=== PATIENT | male | born 1945 | race Caucasian/White ===

== ENCOUNTER → 2017-06-07 | Outpatient (CLI) | payer OTHER ==
--- NOTE | 2017-06-07 09:35 | DIAGNOSTIC IMAGING REPORT ---
CT SCAN OF THE CHEST WITHOUT IV CONTRAST CLINICAL HISTORY: Follow-up pulmonary nodule. COMPARISON STUDY: Chest CT scans dated 09/24/2016 and 08/08/2016. TECHNIQUE: CT scan of the thorax was performed from the thoracic inlet to the upper abdomen. Images are reviewed in the axial, sagittal, and coronal planes. IV contrast was not administered for this examination. A dose lowering technique was utilized adhering to the principles of ALARA. CT DOSE: 253.19 mGy.cm FINDINGS: Thyroid: Imaged portions of the thyroid gland are normal in size and attenuation. Thoracic aorta: There is advanced atherosclerotic calcification of the thoracic aorta, which is normal in caliber and demonstrates standard 3-vessel arch anatomy. Heart: The heart is normal in size and without pericardial effusion. The coronary arteries are densely calcified. Lungs and pleural spaces: Advanced emphysematous change is identified. Minimal layering secretions are seen in the trachea. There is patchy airspace consolidation at the right lung base. A 1.5 cm nodular density seen in the right lung base on image #262. A trace right pleural effusion is identified. Fluid/debris is seen within the right lower lobe airways. Atelectasis/consolidation is seen in the posterior left lower lobe on image #107, new from previous. There is a 4 mm left apical nodule seen on image #32 and a 3 mm left upper lobe nodule seen image #52. These were not seen on prior studies. Mediastinum: There is no mediastinal lymphadenopathy. Starla: Normal assessed without IV contrast. Axillae: There is no axillary lymphadenopathy. Upper abdomen: There is a tiny hiatal hernia. Partially visualized upper abdominal viscera is otherwise within normal limits. Skeletal structures: The skeletal structures are osteopenic. No lytic or blastic bony lesions are seen. Arthritic change is noted in the shoulders. IMPRESSION: 1. Advanced emphysema. 2. There is patchy airspace consolidation at the right lung base with a trace right pleural effusion. Subpleural consolidative change is also seen in the left lower lobe. The appearance is typical for pneumonia/aspiration pneumonitis. Clinical correlation will be required. Follow-up chest CT in 3-4 months time is recommended to document resolution. 3. Fluid/debris is present in the right lower lobe airways. Minimal debris is seen in the trachea. Correlate clinically for evidence of aspiration. 4. There is a 1.5 cm nodular density at the right lung base as well as 2 new subcentimeter nodules at the left apex. These are likely on an infectious/inflammatory basis and should also be reassessed at follow-up. Electronically signed by: Sonny Escalante M.D. 06/07/2017 9:34 AM Dictated Date/Time: 06/07/2017 9:21 AM
== END | disposition home or self-care (01) ==
LOC: C.CTS 09:07
PROVIDERS: ATTEND Internal Medicine Critical Care Medicine
DX: R91.1 Solitary pulmonary nodule (principal); J43.9 Emphysema, unspecified; R91.8 Other nonspecific abnormal finding of lung field

== ENCOUNTER → 2017-07-12 | Outpatient (CLI) | payer OTHER ==
[2017-07-12 10:27] LABS: BASO % 0.2 %; BASO ABS # 0.02 K/uL (0-0.2); EOS % 0.8 %; EOS ABS # 0.08 K/uL (0-0.5); HEMATOCRIT 46.9 % (42-52); HEMOGLOBIN 15.5 g/dL (14.0-18.0); IG# 0.04 K/uL (0.00-0.02); LYMPH % 6.3 %; LYMPH ABS # 0.62 K/uL (1.2-3.4); MEAN CELL VOLUME 94.4 fL (80-100); MEAN CORPUSCULAR HEMOGLOBIN 31.2 pg (25-34); MEAN PLATELET VOLUME 9.8 fL (7.4-10.4); MONO % 6.2 %; MONO ABS # 0.61 K/uL (0.11-0.59); NEUT % 86.1 %; NEUT ABS # 8.41 K/uL (1.4-6.5); PLATELET COUNT 184 K/uL (130-400); RED CELL DISTRIBUTION WIDTH CV 15.2 % (11.5-14.5); RED CELL DISTRIBUTION WIDTH SD 52.2 fL (36.4-46.3); WHITE BLOOD COUNT 9.78 K/uL (4.8-10.8)
[2017-07-12 10:36] LABS: PTT PATIENT 22.8 SECONDS (21.0-31.0)
[2017-07-12 10:58] LABS: ALBUMIN 3.5 gm/dl (3.4-5.0); ALKALINE PHOSPHATASE 52 U/L (45-117); ALT/SGPT 32 U/L (12-78); AST/SGOT 21 U/L (15-37); BLOOD UREA NITROGEN 23 mg/dl (7-18); CALCIUM 8.8 mg/dl (8.5-10.1); CARBON DIOXIDE 29 mmol/L (21-32); CREATININE 1.11 mg/dl (0.60-1.40); GLUCOSE 104 mg/dl (70-99); POTASSIUM 3.9 mmol/L (3.5-5.1); SODIUM 143 mmol/L (136-145)
== END | disposition home or self-care (01) ==
LOC: C.LAB1850 09:41
PROVIDERS: ATTEND Internal Medicine Critical Care Medicine
DX: J44.9 Chronic obstructive pulmonary disease, unspecified (principal); R91.1 Solitary pulmonary nodule

== ENCOUNTER 2017-09-16 09:46 | Inpatient (IN) | payer OTHER ==
[~2017-09-16] VITALS: Ht 175.3 cm; Wt 66.3 kg
[~2017-09-16 09:46] MED LIST: ADVIN50/60 INH; DUTA0.5C PO; IPRA1AER2 INH; ROSU40TA PO; VENL150C56 PO; VNTHFA/IN INH
[2017-09-16] MEDS ORDERED: ALBUT/IPRATROP 3MG/0.5MG NEB 3 ML VIAL INH STA (10:13)
[2017-09-16] MEDS ORDERED: METHYLPREDNISOLONE 125 MG VIAL IV STA (10:13)
--- NOTE | 2017-09-16 10:36 | DIAGNOSTIC IMAGING REPORT ---
CHEST ONE VIEW PORTABLE CLINICAL HISTORY: Shortness of breath COMPARISON STUDY: 08/01/2017, CT scan dated 08/20/2017 FINDINGS: There is evidence for pulmonary emphysema. The heart is normal in size. There is no failure. There are no pleural effusions. There are persistent right lower lobe airspace opacities, statistically inflammatory/postinflammatory. Imaging follow-up to document resolution is again recommended IMPRESSION: 1. Persistent right lower lobe airspace opacities, statistically inflammatory/postinflammatory. As was stated in the prior CT report, follow-up to document resolution will be necessary. In addition, bronchoscopy should be considered to exclude a centrally obstructing lesion. 2. Emphysema Electronically signed by: Nick Mesa M.D. 09/16/2017 10:35 AM Dictated Date/Time: 09/16/2017 10:31 AM
[2017-09-16 10:42] LABS: BASO % 0.1 %; BASO ABS # 0.01 K/uL (0-0.2); EOS % 0.1 %; EOS ABS # 0.02 K/uL (0-0.5); HEMATOCRIT 45.6 % (42-52); HEMOGLOBIN 15.3 g/dL (14.0-18.0); IG# 0.05 K/uL (0.00-0.02); LYMPH % 4.6 %; LYMPH ABS # 0.67 K/uL (1.2-3.4); MEAN CELL VOLUME 94.2 fL (80-100); MEAN CORPUSCULAR HEMOGLOBIN 31.6 pg (25-34); MEAN CORPUSCULAR HGB CONC 33.6 g/dl (32-36); MEAN PLATELET VOLUME 10.9 fL (7.4-10.4); MONO % 7.9 %; MONO ABS # 1.14 K/uL (0.11-0.59); NEUT ABS # 12.56 K/uL (1.4-6.5); PLATELET COUNT 155 K/uL (130-400); RED CELL DISTRIBUTION WIDTH CV 15.4 % (11.5-14.5); RED CELL DISTRIBUTION WIDTH SD 53.5 fL (36.4-46.3); WHITE BLOOD COUNT 14.45 K/uL (4.8-10.8)
[2017-09-16] MEDS ORDERED: VNTHFA/IN INH (11:11)
[2017-09-16] MEDS ORDERED: IPRA1AER2 INH (11:11)
[2017-09-16] MEDS ORDERED: ADVIN25/60 INH (11:11)
[2017-09-16] MEDS ORDERED: OXYC-57 PO (11:11)
[2017-09-16] MEDS ORDERED: TAMS0.4C38 PO (11:11)
[2017-09-16] MEDS ORDERED: AVD5 PO (11:11)
[2017-09-16] MEDS ORDERED: SERT25TA PO (11:11)
[2017-09-16] MEDS ORDERED: VGR50 PO (11:11)
[2017-09-16] MEDS ORDERED: ROSU20TA PO (11:11)
[2017-09-16] MEDS ORDERED: VENL150C56 PO (11:11)
[2017-09-16] MEDS ORDERED: PRED10TA PO (11:11)
[2017-09-16 11:24] LABS: ALKALINE PHOSPHATASE 47 U/L (45-117); ALT/SGPT 27 U/L (12-78); AST/SGOT 13 U/L (15-37); BLOOD UREA NITROGEN 18 mg/dl (7-18); CALCIUM 9.3 mg/dl (8.5-10.1); CARBON DIOXIDE 25 mmol/L (21-32); CREATININE 1.06 mg/dl (0.60-1.40); GLUCOSE 133 mg/dl (70-99); LIPASE 78 U/L (73-393); POTASSIUM 3.7 mmol/L (3.5-5.1); SODIUM 139 mmol/L (136-145)
[2017-09-16] MEDS ORDERED: ACETAMINOPHEN 500 MG TAB ONE (11:26)
[2017-09-16] MEDS ORDERED: OPTIRAY 320 IV PRN (11:45)
[2017-09-16] MEDS ORDERED: OXYCODONE HCL IR 5 MG TAB (IMMEDIATE RELEASE) PO STA (12:52)
--- NOTE | 2017-09-16 12:54 | DIAGNOSTIC IMAGING REPORT ---
CT ANGIOGRAPHY OF THE CHEST, PULMONARY EMBOLUS PROTOCOL CLINICAL HISTORY: Shortness of breath and elevated d-dimer. Evaluate for pulmonary embolus. COMPARISON STUDY: Chest CT August 20, 2017 and chest radiograph performed earlier today. TECHNIQUE: Following IV administration of 93 mL of Optiray-320, helical axial images of the chest were obtained utilizing the pulmonary embolus protocol. Maximal intensity projections and sagittal and coronal reformats were viewed on an independent 3D workstation. IV contrast was administered without complication. A dose lowering technique was utilized adhering to the principles of ALARA. CT DOSE: 265.64 mGy.cm FINDINGS: No pulmonary emboli are identified. There is no evidence of thoracic aortic dissection. The size of the heart is normal. There is no pericardial effusion. Mild right hilar lymphadenopathy has developed since exam of August 20, 2017. Right infrahilar node measures 1 cm in short axis diameter. Severe emphysema is noted. Left lung is clear. Extensive right lower lobe consolidation has progressed since exam of August 20, 2017. Extensive secretions with multifocal narrowing within the right lower lobe segmental bronchi is noted with airway filling which may reflect mucoid impaction or mucus plugging. This has progressed since CT of August 20, 2017. No definite central obstructing mass is identified. Bony thorax and upper abdomen are unremarkable. No cavitation or pleural effusion is noted. A small hiatal hernia is noted. IMPRESSION: 1. No pulmonary emboli identified. 2. Progression of extensive right lower lobe airspace opacity since exam of August 20, 2017. The appearance favors pneumonia. Multifocal airway narrowing/occlusion with secretions throughout the segmental bronchi of the right lower lobe with mucoid impaction/mucus plugging. This has progressed since prior exam. No obstructing mass identified however a follow-up CT in 2 months to ensure resolution is recommended. If not already performed, bronchoscopy might be considered to exclude an occult lesion. 3. Mild right hilar lymphadenopathy which is likely reactive but should be assessed on subsequent CT. 4. Severe emphysema. Electronically signed by: King Edwards M.D. 09/16/2017 12:53 PM Dictated Date/Time: 09/16/2017 12:38 PM
[2017-09-16] MEDS ORDERED: PIPERACILLIN/TAZOBACTAM 4.5 GM/100ML D5W IV STA (13:18)
[2017-09-16] MEDS ORDERED: LEVAQUIN 750MG / 150ML D5W IV ONE (13:30)
[2017-09-16] MEDS ORDERED: POLYETHYLENE (MIRALAX) 17 GM PACK PO PRN (15:30)
--- NOTE | 2017-09-16 15:31 | History and Physical ---
History & Physical Date & Time of Service: Sep 16, 2017 at 14:17 Chief Complaint: Can't Catch Breath Primary Care Physician: Sin Rivas MD History of Present Illness Source: patient, family (two sons and daughter at bedside), hospital records 72 y/o male presents to the ED today with progressive shortness of breath for the past week. He has a history of COPD that has progressed, particularly over the past year and a half. He reports having home O2 for several months but has only worn consistently since recent hospitalization after bronchoscopy in July 2017. His baseline requirement is 2 liters. He is also on prednisone 10 mg daily and has been on this "for a long time." He has been smoking 1PPD since age 13 but reports current breathing issues have resulted in smoking only a few cigarettes per day, although still no interest in quitting long-term. His bronchoscopy in July 2017 was to be outpatient but patient desaturated post- procedure and was admitted. Culture grew pseudomonas for which he was treated with ciprofloxacin. He reports that he was doing better until a week ago. Since then he notes progressive dyspnea, particularly with exertion. Previously , he could do a flight of steps easily but he is now winded with 10 feet of walking. He has a chronic cough that is productive in the AMs of small amount of light brown sputum. No hemoptysis, fevers, chills, or night sweats. He has been fatigued. He props up with three pillows to sleep at night (baseline was two). Notes a decreased appetite but no N/V/D. +constipation but chronic issue. Last BM was four days ago. Takes Senna at home when needed, which works well. He has been using Combivent for rescue up to 6 times per day ( baseline 3-4x/day). He has not tried his nebulizer. Notes right > left lower back pain and some abdominal pain related to cough. Past Medical/Surgical History Medical Problems: (1) Actinic keratosis (2) COPD, severe (3) Depression (4) H/O carcinoma of bladder (5) HTN (hypertension) (6) oil heaterman systemic steroid user (7) Peripheral vascular disease (8) Pulmonary nodule (9) Right carotid bruit (10) SOB (shortness of breath) (11) Tobacco use disorder Surgical Problems: (1) H/O knee surgery (2) H/O shoulder surgery Family History Patient reports no known family medical history. Social History Smoking Status: Current Every Day Smoker Drug Use: none Marital Status: Housing status: lives alone Occupational Status: retired Immunizations History of Influenza Vaccine: Yes Influenza Vaccine Date: Nov 21, 2016 History of Tetanus Vaccine?: Yes Tetanus Immunization Date: Nov 23, 2016 History of Pneumococcal: Yes Pneumococcal Date: Dec 21, 2014 History of Hepatitis B Vaccine: Unknown Allergies Coded Allergies: Sulfa Antibiotics (Verified Allergy, Intermediate, HIVES, 09/16/17) Home Medications Scheduled Dutasteride (Avodart), 0.5 MG PO DAILY Fluticasone Prop/Salmeterol (Advair Diskus 250/50 60 Dose), 1 PUFF INH BID Ipratropium-Albuterol (Combivent Respimat), 1 PUFFS INH QID Prednisone Tab (Prednisone), 10 MG PO DAILY Rosuvastatin Calcium (Crestor), 20 MG PO DAILY Sertraline (Zoloft), 25 MG PO DAILY Tamsulosin Hcl (Flomax), 0.4 MG PO HS Venlafaxine Hcl (Effexor Extended Rel), 150 MG PO DAILY Scheduled PRN Albuterol Hfa (Ventolin Hfa), 2 PUFFS INH Q4 PRN for SOB/Wheezing Oxycodone/Acetaminophen 5MG/325MG (Percocet 5MG/325MG), 1 TABLET PO Q12 PRN for Pain Sildenafil Citrate (Viagra), 50 MG PO UD PRN for PRN Review of Systems Constitutional: + weakness, + fatigue, No fever, No chills, No sweats Eyes: No worsening of vision ENT: No unusual epistaxis, No nasal symptoms, No sore throat Respiratory: + cough (productive in AM), + sputum, + shortness of breath, + dyspnea on exertion, + dyspnea at rest, No hemoptysis Cardiovascular: + orthopnea (three pillows), No chest pain, No edema, No claudication Abdomen: + constipation, + problem reported (loss of appetite), No nausea, No vomiting, No diarrhea Musculoskeletal: + problem reported (right > left lower back pain), No swelling , No calf pain Genitourinary - Male: No hematuria, No dysuria, No urinary frequency, No urinary urgency Neurologic: + problem reported (orthostatic dizziness with intermittent syncope (last episode July 2017)) Hematologic / Lymphatic: + abnormal bleeding/bruising (easy bruising) Physical Exam Vital Signs Date Time Temp Pulse Resp B/P (MAP) Pulse Ox O2 Delivery O2 Flow Rate FiO2 09/16/17 14:10 87 20 141/67 93 Nasal Cannula 2.0 09/16/17 13:25 85 09/16/17 13:16 80 16 116/46 96 Nasal Cannula 2.0 09/16/17 12:00 76 18 138/67 96 Nasal Cannula 2.0 09/16/17 11:12 88 16 129/73 95 Nasal Cannula 2.0 09/16/17 10:39 95 Nasal Cannula 2.0 09/16/17 10:36 91 20 133/64 97 Nebulizer 09/16/17 10:35 91 09/16/17 10:30 95 Nasal Cannula 2.0 09/16/17 09:56 36.8 104 18 123/67 95 Room Air 2.0 General Appearance: no apparent distress, + thin Head: normocephalic, atraumatic Eyes: normal inspection, PERRL, sclerae normal ENT: pharynx normal Neck: supple, no adenopathy Respiratory/Chest: no respiratory distress, no accessory muscle use, + decreased breath sounds (at right base), + wheezing, + pertinent finding ( coarse BS throughout) Cardiovascular: regular rate, rhythm, no gallop, normal peripheral pulses Abdomen/GI: normal bowel sounds, non tender, soft, no pulsatile mass Back: normal inspection, no CVA tenderness, no muscle spasm Extremities/Musculoskelatal: no calf tenderness, no pedal edema Neurologic/Psych: alert, normal mood/affect, oriented x 3 Skin: warm/dry, no rash, + pertinent finding (few small areas of ecchymosis on UE and LE) Lymphatic: no adenopathy Diagnostics Laboratory Results Results Past 24 Hours Test 09/16/17 10:30 09/16/17 13:26 Range/Units White Blood Count 14.45 4.8-10.8 K/uL Red Blood Count 4.84 4.7-6.1 M/uL Hemoglobin 15.3 14.0-18.0 g/dL Hematocrit 45.6 42-52 % Mean Corpuscular Volume 94.2 80-100 fL Mean Corpuscular Hemoglobin 31.6 25-34 pg Mean Corpuscular Hemoglobin Concent 33.6 32-36 g/dl Platelet Count 155 130-400 K/uL Mean Platelet Volume 10.9 7.4-10.4 fL Neutrophils (%) (Auto) 87.0 % Lymphocytes (%) (Auto) 4.6 % Monocytes (%) (Auto) 7.9 % Eosinophils (%) (Auto) 0.1 % Basophils (%) (Auto) 0.1 % Neutrophils # (Auto) 12.56 1.4-6.5 K/uL Lymphocytes # (Auto) 0.67 1.2-3.4 K/uL Monocytes # (Auto) 1.14 0.11-0.59 K/uL Eosinophils # (Auto) 0.02 0-0.5 K/uL Basophils # (Auto) 0.01 0-0.2 K/uL RDW Standard Deviation 53.5 36.4-46.3 fL RDW Coefficient of Variation 15.4 11.5-14.5 % Immature Granulocyte % (Auto) 0.3 % Immature Granulocyte # (Auto) 0.05 0.00-0.02 K/uL D-Dimer 1470 0-500 ug/L FEU Sodium Level 139 136-145 mmol/L Potassium Level 3.7 3.5-5.1 mmol/L Chloride Level 106 98-107 mmol/L Carbon Dioxide Level 25 21-32 mmol/L Anion Gap 8.0 3-11 mmol/L Blood Urea Nitrogen 18 7-18 mg/dl Creatinine 1.06 0.60-1.40 mg/dl Est Creatinine Clear Calc Drug Dose 57.9 ml/min Estimated GFR () 80.3 Estimated GFR (Non- 69.3 BUN/Creatinine Ratio 17.1 10-20 Random Glucose 133 70-99 mg/dl Calcium Level 9.3 8.5-10.1 mg/dl Total Bilirubin 0.8 0.2-1 mg/dl Direct Bilirubin 0.2 0-0.2 mg/dl Aspartate Amino Transf (AST/SGOT) 13 15-37 U/L Alanine Aminotransferase (ALT/SGPT) 27 12-78 U/L Alkaline Phosphatase 47 45-117 U/L Troponin I < 0.015 0-0.045 ng/ml Total Protein 7.0 6.4-8.2 gm/dl Albumin 3.0 3.4-5.0 gm/dl Lipase 78 73-393 U/L Urine Color DK YELLOW Urine Appearance CLEAR CLEAR Urine pH 5.0 4.5-7.5 Urine Specific [place] > 1.045 1.000-1.030 Urine Protein 2+ NEG Urine Glucose (UA) 1+ NEG Urine Ketones NEG NEG Urine Occult Blood 2+ NEG Urine Nitrite NEG NEG Urine Bilirubin NEG NEG Urine Urobilinogen NEG NEG Urine Leukocyte Esterase NEG NEG Urine WBC (Auto) 1-5 0-5 /hpf Urine RBC (Auto) 5-10 0-4 /hpf Urine Hyaline Casts (Auto) 1-5 0-5 /lpf Urine Epithelial Cells (Auto) >30 0-5 /lpf Urine Bacteria (Auto) NEG NEG Urine Renal Epithelial Cells 0-5 /lpf Diagnostic Radiology CXR 09/16/17 - IMPRESSION: 1. Persistent right lower lobe airspace opacities, statistically inflammatory/postinflammatory. As was stated in the prior CT report, follow-up to document resolution will be necessary. In addition, bronchoscopy should be considered to exclude a centrally obstructing lesion. 2. Emphysema CTA Chest 09/16/17 - IMPRESSION: 1. No pulmonary emboli identified. 2. Progression of extensive right lower lobe airspace opacity since exam of August 20, 2017. The appearance favors pneumonia. Multifocal airway narrowing/occlusion with secretions throughout the segmental bronchi of the right lower lobe with mucoid impaction/mucus plugging. This has progressed since prior exam. No obstructing mass identified however a follow-up CT in 2 months to ensure resolution is recommended. If not already performed, bronchoscopy might be considered to exclude an occult lesion. 3. Mild right hilar lymphadenopathy which is likely reactive but should be assessed on subsequent CT. 4. Severe emphysema. Impression Assessment and Plan 72 y/o male with history of O2 dependent and steroid dependent COPD presents with progressive shortness of breath 1. COPD exacerbation with mucus plugging - culture from bronchoscopy in July grew pseudomonas - Continue IV Zosyn and Levaquin started in the ED - pharmacy consulted for dosing - Consult [place] [facility] [place] - DuoNebs QID scheduled with additional nebs Q2 hrs PRN - IV Solumedrol 40 mg Q8 hours - Continue home O2 (on 2 liters at baseline) 2. Anxiety/Depression - on Effexor outpatient, will continue 3. Tobacco use disorder - pt remains uninterested in smoking cessation 4. Constipation - ordered Miralax PRN 5. Code status - full resuscitation 6. DVT prophylaxis - SCDs, Lovenox Dispo: admit to med/surg Case discussed with admitting physician Dr. Mónica Bowden, PA-C Attending Addendum: The patient was seen and examined in the ER He has a history of COPD dependent on oxygen and steroid and she continues to smoke He was admitted with increasing shortness of breath and weakness which has been going on for about 1 week He feels feverish but no documented temperature Noted to have possible pneumonia On examination Minimal distress at rest Hemodynamically stable Chest-decreased breath sounds both sites, occasional crackles right base Minimal wheezing bilaterally Heart-regular, no murmur appreciated Abdomen-benign, nontender, no organomegaly Extremities-No edema Admission labs and imaging studies reviewed Has right lower lobe infiltration/plugging with mucus Started on intravenous antibiotics and steroid Pulmonary consulted Agree with assessment and plan as mentioned above Dr. Alondra Sales Resuscitation Status Full resuscitation VTE Prophylaxis Will order VTE Prophylaxis: Yes
[2017-09-16] MEDS ORDERED: LEVOFLOXACIN CONSULT ACTIVE PRN (15:45)
[2017-09-16] MEDS ORDERED: PIPERACILL/TAZOBAC CONSULT ACTIVE PRN (15:45)
[2017-09-16 15:54] VITALS: BP 127/68; PULSE 87; TEMP 36.4; O2SAT 96; Ht 175.3 cm; Wt 66.3 kg
[2017-09-16] MEDS: AVODART-ORDER AWAITING ACTION SCH (16:00)
[2017-09-16] MEDS ORDERED: OXYCODONE/ACETAMINOPHEN 5-325 TAB PO PRN (16:00)
--- NOTE | 2017-09-16 16:03 | EMERGENCY ROOM VISIT NOTE ---
History Report prepared by Yariel: Adina Christensen Under the Supervision of: Dr. Uday Lew D.O. First contact with patient: 10:04 Chief Complaint: SHORTNESS OF BREATH Stated Complaint: CAN'T CATCH BREATH History of Present Illness The patient is a 72 year old male who presents to the Emergency Room with complaints of worsening shortness of breath starting a week ago. The patient notes that he has a history of COPD and still smokes some each day. He reports that he normally wears 2L of O2 at all times and follows with Dr. Ireland. He states that he is on 10 of steroids daily. The patient complains of abdominal pain and back pain. He states that it comes from breathing so hard and gets tight. He states that it is worse with movement and he did not have this before his breathing became worse in the past week. The patient denies chest pain, nausea, vomiting, new cough, change in sputum, use of blood thinners , and a history of blood clots. Source of History: patient Onset: a week ago Quality: other (shortness of breath) Timing: worsening Modifying Factors (Worsening): breathing, movement Associated Symptoms: + abdominal pain, + back pain, No cough, No chest pain , No nausea, No vomiting Note: The patient denies change in sputum. Review of Systems See HPI for pertinent positives & negatives. A total of 10 systems reviewed and were otherwise negative. Past Medical & Surgical Medical Problems: (1) Actinic keratosis (2) COPD with exacerbation (3) COPD, severe (4) Depression (5) H/O carcinoma of bladder (6) HTN (hypertension) (7) MCFP systemic steroid user (8) Peripheral vascular disease (9) Pulmonary nodule (10) Right carotid bruit (11) SOB (shortness of breath) (12) Tobacco use disorder Surgical Problems: (1) H/O knee surgery (2) H/O shoulder surgery Family History Patient reports no known family medical history. Social History Smoking Status: Current Every Day Smoker Drug Use: none Marital Status: single Housing Status: lives with family Occupation Status: retired Current/Historical Medications Scheduled Dutasteride (Avodart), 0.5 MG PO DAILY Fluticasone Prop/Salmeterol (Advair Diskus 250/50 60 Dose), 1 PUFF INH BID Ipratropium-Albuterol (Combivent Respimat), 1 PUFFS INH QID Prednisone Tab (Prednisone), 10 MG PO DAILY Rosuvastatin Calcium (Crestor), 20 MG PO DAILY Sertraline (Zoloft), 25 MG PO DAILY Tamsulosin Hcl (Flomax), 0.4 MG PO HS Venlafaxine Hcl (Effexor Extended Rel), 150 MG PO DAILY Scheduled PRN Albuterol Hfa (Ventolin Hfa), 2 PUFFS INH Q4 PRN for SOB/Wheezing Oxycodone/Acetaminophen 5MG/325MG (Percocet 5MG/325MG), 1 TABLET PO Q12 PRN for Pain Sildenafil Citrate (Viagra), 50 MG PO UD PRN for PRN Allergies Coded Allergies: Sulfa Antibiotics (Verified Allergy, Intermediate, HIVES, 09/16/17) Physical Exam Vital Signs Date Time Temp Pulse Resp B/P (MAP) Pulse Ox O2 Delivery O2 Flow Rate FiO2 09/16/17 14:10 87 20 141/67 93 Nasal Cannula 2.0 09/16/17 13:25 85 09/16/17 13:16 80 16 116/46 96 Nasal Cannula 2.0 09/16/17 12:00 76 18 138/67 96 Nasal Cannula 2.0 09/16/17 11:12 88 16 129/73 95 Nasal Cannula 2.0 09/16/17 10:39 95 Nasal Cannula 2.0 09/16/17 10:36 91 20 133/64 97 Nebulizer 09/16/17 10:35 91 09/16/17 10:30 95 Nasal Cannula 2.0 09/16/17 09:56 36.8 104 18 123/67 95 Room Air 2.0 Physical Exam GENERAL: Sitting up in bed, cachectic, chronically ill appearing. EYE EXAM: normal conjunctiva. OROPHARYNX: no exudate, no erythema, lips, buccal mucosa, and tongue normal and mucous membranes are moist NECK: supple, no nuchal rigidity, no adenopathy, non-tender LUNGS: Diffuse wheezing bilaterally. HEART: Tachycardic, no murmurs, S1 normal and S2 normal ABDOMEN: abdomen soft, non-tender, normo-active bowel sounds, no masses, no rebound or guarding. BACK: Back is symmetrical on inspection and there is no deformity, no midline tenderness, no CVA tenderness. SKIN: no rashes and no bruising UPPER EXTREMITIES: upper extremities are grossly normal. LOWER EXTREMITIES: No pitting edema. Calves equal bilaterally. NEURO EXAM: Normal sensorium, cranial nerves II-XII grossly intact, normal speech, no gross weakness of arms, no gross weakness of legs. Medical Decision & Procedures ER Provider Diagnostic Interpretation: Radiology results as stated below per my review and the radiologist's interpretation: CHEST ONE VIEW PORTABLE CLINICAL HISTORY: Shortness of breath COMPARISON STUDY: 08/01/2017, CT scan dated 08/20/2017 FINDINGS: There is evidence for pulmonary emphysema. The heart is normal in size. There is no failure. There are no pleural effusions. There are persistent right lower lobe airspace opacities, statistically inflammatory/postinflammatory. Imaging follow-up to document resolution is again recommended IMPRESSION: 1. Persistent right lower lobe airspace opacities, statistically inflammatory/postinflammatory. As was stated in the prior CT report, follow-up to document resolution will be necessary. In addition, bronchoscopy should be considered to exclude a centrally obstructing lesion. 2. Emphysema Electronically signed by: Nick Mesa M.D. 09/16/2017 10:35 AM Dictated Date/Time: 09/16/2017 10:[address] ANGIOGRAPHY OF THE CHEST, PULMONARY EMBOLUS PROTOCOL CLINICAL HISTORY: Shortness of breath and elevated d-dimer. Evaluate for pulmonary embolus. COMPARISON STUDY: Chest CT August 20, 2017 and chest radiograph performed earlier today. TECHNIQUE: Following IV administration of 93 mL of Optiray-320, helical axial images of the chest were obtained utilizing the pulmonary embolus protocol. Maximal intensity projections and sagittal and coronal reformats were viewed on an independent 3D workstation. IV contrast was administered without complication. A dose lowering technique was utilized adhering to the principles of ALARA. CT DOSE: 265.64 mGy.cm FINDINGS: No pulmonary emboli are identified. There is no evidence of thoracic aortic dissection. The size of the heart is normal. There is no pericardial effusion. Mild right hilar lymphadenopathy has developed since exam of August 20, 2017. Right infrahilar node measures 1 cm in short axis diameter. Severe emphysema is noted. Left lung is clear. Extensive right lower lobe consolidation has progressed since exam of August 20, 2017. Extensive secretions with multifocal narrowing within the right lower lobe segmental bronchi is noted with airway filling which may reflect mucoid impaction or mucus plugging. This has progressed since CT of August 20, 2017. No definite central obstructing mass is identified. Bony thorax and upper abdomen are unremarkable. No cavitation or pleural effusion is noted. A small hiatal hernia is noted. IMPRESSION: 1. No pulmonary emboli identified. 2. Progression of extensive right lower lobe airspace opacity since exam of August 20, 2017. The appearance favors pneumonia. Multifocal airway narrowing/occlusion with secretions throughout the segmental bronchi of the right lower lobe with mucoid impaction/mucus plugging. This has progressed since prior exam. No obstructing mass identified however a follow-up CT in 2 months to ensure resolution is recommended. If not already performed, bronchoscopy might be considered to exclude an occult lesion. 3. Mild right hilar lymphadenopathy which is likely reactive but should be assessed on subsequent CT. 4. Severe emphysema. Electronically signed by: King Edwards M.D. 09/16/2017 12:53 PM Dictated Date/Time: 09/16/2017 12:38 PM Laboratory Results 09/16/17 10:30 Red Blood Count 4.84, Mean Corpuscular Volume 94.2, Mean Corpuscular Hemoglobin 31.6, Mean Corpuscular Hemoglobin Concent 33.6, Mean Platelet Volume 10.9, Neutrophils (%) (Auto) 87.0, Lymphocytes (%) (Auto) 4.6, Monocytes (%) (Auto) 7.9, Eosinophils (%) (Auto) 0.1, Basophils (%) (Auto) 0.1, Neutrophils # (Auto) 12.56, Lymphocytes # (Auto) 0.67, Monocytes # (Auto) 1.14, Eosinophils # (Auto) 0.02, Basophils # (Auto) 0.01 09/16/17 10:30 Test 09/16/17 10:30 09/16/17 13:26 White Blood Count 14.45 K/uL (4.8-10.8) Red Blood Count 4.84 M/uL (4.7-6.1) Hemoglobin 15.3 g/dL (14.0-18.0) Hematocrit 45.6 % (42-52) Mean Corpuscular Volume 94.2 fL (80-100) Mean Corpuscular Hemoglobin 31.6 pg (25-34) Mean Corpuscular Hemoglobin Concent 33.6 g/dl (32-36) Platelet Count 155 K/uL (130-400) Mean Platelet Volume 10.9 fL (7.4-10.4) Neutrophils (%) (Auto) 87.0 % Lymphocytes (%) (Auto) 4.6 % Monocytes (%) (Auto) 7.9 % Eosinophils (%) (Auto) 0.1 % Basophils (%) (Auto) 0.1 % Neutrophils # (Auto) 12.56 K/uL (1.4-6.5) Lymphocytes # (Auto) 0.67 K/uL (1.2-3.4) Monocytes # (Auto) 1.14 K/uL (0.11-0.59) Eosinophils # (Auto) 0.02 K/uL (0-0.5) Basophils # (Auto) 0.01 K/uL (0-0.2) RDW Standard Deviation 53.5 fL (36.4-46.3) RDW Coefficient of Variation 15.4 % (11.5-14.5) Immature Granulocyte % (Auto) 0.3 % Immature Granulocyte # (Auto) 0.05 K/uL (0.00-0.02) D-Dimer 1470 ug/L FEU (0-500) Anion Gap 8.0 mmol/L (3-11) Est Creatinine Clear Calc Drug Dose 57.9 ml/min Estimated GFR () 80.3 Estimated GFR (Non- 69.3 BUN/Creatinine Ratio 17.1 (10-20) Calcium Level 9.3 mg/dl (8.5-10.1) Total Bilirubin 0.8 mg/dl (0.2-1) Direct Bilirubin 0.2 mg/dl (0-0.2) Aspartate Amino Transf (AST/SGOT) 13 U/L (15-37) Alanine Aminotransferase (ALT/SGPT) 27 U/L (12-78) Alkaline Phosphatase 47 U/L (45-117) Troponin I < 0.015 ng/ml (0-0.045) Total Protein 7.0 gm/dl (6.4-8.2) Albumin 3.0 gm/dl (3.4-5.0) Lipase 78 U/L (73-393) Urine Color DK YELLOW Urine Appearance CLEAR (CLEAR) Urine pH 5.0 (4.5-7.5) Urine Specific [place] > 1.045 (1.000-1.030) Urine Protein 2+ (NEG) Urine Glucose (UA) 1+ (NEG) Urine Ketones NEG (NEG) Urine Occult Blood 2+ (NEG) Urine Nitrite NEG (NEG) Urine Bilirubin NEG (NEG) Urine Urobilinogen NEG (NEG) Urine Leukocyte Esterase NEG (NEG) Urine WBC (Auto) 1-5 /hpf (0-5) Urine RBC (Auto) 5-10 /hpf (0-4) Urine Hyaline Casts (Auto) 1-5 /lpf (0-5) Urine Epithelial Cells (Auto) >30 /lpf (0-5) Urine Bacteria (Auto) NEG (NEG) Urine Renal Epithelial Cells /lpf (0-5) Laboratory results per my review. Medications Administered Medications (Trade) Dose Ordered Sig/Carole Route Start Time Stop Time Status Last Admin Dose Admin Albuterol/ Ipratropium (Duoneb) 3 ml NOW STAT INH 09/16/17 10:13 09/16/17 10:15 DC 09/16/17 10:35 3 ML Methylprednisolone Sodium Succinate (Solu-Medrol IV) 125 mg NOW STAT IV 09/16/17 10:13 09/16/17 10:15 DC 09/16/17 10:35 125 MG Acetaminophen (Tylenol Tab) 1,000 mg STK-MED ONCE .ROUTE 09/16/17 11:26 09/16/17 11:27 DC 09/16/17 11:28 1,000 MG Oxycodone HCl (Roxicodone Immediate Rel Tab) 5 mg NOW STAT PO 09/16/17 12:52 09/16/17 12:53 DC 09/16/17 13:16 5 MG Piperacillin Sod/ Tazobactam Sod (Zosyn Iv) 4.5 gm NOW STAT IV 09/16/17 13:18 09/16/17 13:20 DC 09/16/17 13:28 4.5 GM Levofloxacin (Levaquin / D5W) 750 mg NOW ONCE IV 09/16/17 13:30 09/16/17 13:31 DC 09/16/17 14:08 750 MG ECG Per My Interpretation Indication: SOB/dyspnea Rate (beats per minute): 90 Rhythm: sinus rhythm Findings: other (normal axis, no PVCs) ED Course ED COURSE: Vital signs were reviewed and showed tachycardia. The patients medical record was reviewed The above diagnostic studies were performed and reviewed. ED treatments and interventions as stated above. 1008: The patient was evaluated in room B3B. A complete history and physical examination was performed. 1013: Ordered Solu-Medrol IV 125 mg IV, Duoneb 3 ml INH. 1126: Ordered Acetaminophen 1000 mg PO. 1252: Ordered Oxycodone HCl 5 mg PO. 1302: When reviewing the test results, the patient has progression of his pneumonia. 1317: Upon reevaluation, the patient is resting comfortably. I discussed my findings with the patient and he understands and agrees with the treatment plan. Based on the patients age, coexisting illnesses, exam and lab findings the decision to treat as an inpatient was made. The patient remained stable while under my care. The patient will be evaluated for further management. 1318: Ordered Zosyn Iv 4.5 gm IV 1319: I reviewed the patient's case with PAULA Callejas. She will evaluate the patient for further management. 1320: When reviewing the patient's previous sputum cultures, pseudomonas was found to grow out. 1330: Ordered Levofloxacin 750 mg IV. Medical Decision Differential diagnoses includes but is not limited to pneumonia, bronchitis, COPD/Asthma exacerbation, pneumothorax, pulmonary embolism, congestive heart failure, acute coronary syndrome. Patient is a 72-year-old male with a past medical history of COPD that presents to ER for shortness of breath which is been worsening over the past 2-3 weeks. He notes that he is followed with pulmonology and was recently treated for pneumonia after bronchoscopy within the month. CBC shows leukocytosis of 15, 000. BMP along with L Tis, bilirubin and troponin was negative. Lipase is normal d-dimer was elevated and consequently CT PE was obtained and showed a right lung mass/infection. This is a worsening comparison to his previous visits. Based on this I do believe that this likely causing his symptoms. Question infection versus cancer. Discussed with internal medicine for admission. Patient was given broad-spectrum antibiotics and admitted to internal medicine. He was given steroids as well. Medication Reconcilliation Current Medication List: was personally reviewed by me Blood Pressure Screening Patient's blood pressure: Normal blood pressure Blood pressure disposition: Did not require urgent referral Consults Time Called: 1317 Consulting Physician: PAULA Callejasist Returned Call: [phone] I reviewed the patient's case with PAULA Callejas Hospitalist. She will evaluate the patient for further management. Impression Primary Impression: Pneumonia Additional Impression: Hypoxia Scribe Attestation The scribe's documentation has been prepared under my direction and personally reviewed by me in its entirety. I confirm that the note above accurately reflects all work, treatment, procedures, and medical decision making performed by me. Departure Information Dispostion Being Evaluated By Hospitalist Referrals Sin Rivas MD (PCP) Patient Instructions [facility] Problem Qualifiers Primary Impression: Pneumonia Pneumonia type: due to unspecified organism Laterality: right Lung location : unspecified part of lung Qualified Codes: J18.9 - Pneumonia, unspecified organism
[2017-09-16] MEDS: PIPERACILL/TAZOBAC IV 3.375 GM in DEXTROSE 5% 100ML 100 ML IV SCH (17:31)
[2017-09-16] MEDS: METHYLPREDNISOLONE IV 40 MG in SYRINGE 0 ML IV SCH (17:31)
[2017-09-16] MEDS ORDERED: ALBUTEROL 0.083% NEBU SOLN 3 ML VIAL INH PRN (17:45)
[2017-09-16 19:55] VITALS: PULSE 79; O2SAT 97
[2017-09-16] MEDS: ALBUT/IPRATROP 3MG/0.5MG NEB 3 ML VIAL INH SCH (19:55)
--- NOTE | 2017-09-16 20:36 | PULMONARY CONSULTATION ---
DATE OF CONSULTATION: 09/16/2017 TIME: 5:40 p.m. REPORT OF CONSULTATION: The patient was seen in room #456, bed 2. HISTORY OF PRESENT ILLNESS: He is a 72-year-old male with a history of very severe COPD. He has had breathing troubles for about three years. They have been getting progressively worse, especially in the past several months. He was hospitalized in July after having had an outpatient bronchoscopy. He developed shortness of breath post-procedure. He was admitted for an overnight stay. The cultures from bronchoscopy showed Pseudomonas aeruginosa and Providencia rettgeri. He was on a course of ciprofloxacin for approximately 10-14 days. He felt better for a while. For the past week or so, he has been much more short of breath. He is now short of breath at rest. Usually, he had only been short of breath with exertion. He does expectorate sputum most days. Typically, it is in the morning. He describes the sputum as brown. It is darker than it had been previously. He has not had any chills, fevers or sweats. He has had some pain in his back. He states he typically gets this when he becomes more short of breath. Curiously, the patient has a nebulizer at home, but he states he never thinks to use it. He does have an Advair Diskus at home. The chart indicates the dose is 250/50, but the patient states he is certain that it is 500/50. He has Combivent Respimat that he uses. He has a Ventolin inhaler to be used p.r.n. He has prednisone 10 mg daily that he has been on for about a year. The patient unfortunately is still smoking. He has smoked for approximately 55 years at one pack per day. He has been so short of breath the last couple of days he states he has smoked very little. His alcohol use is also described as very little. PAST SURGICAL HISTORY: 1. UPPP surgery for a prior history of sleep apnea. 2. Knee surgery. 3. Shoulder surgery. PAST MEDICAL HISTORY: 1. Depression. 2. Bladder cancer. 3. Hypertension. 4. Peripheral vascular disease. 5. Kidney stones. FAMILY HISTORY: Mother late 80s from old age. Father , had coronary artery disease and during a coronary artery bypass graft surgery. ALLERGIES: SULFA. OCCUPATIONAL HISTORY: The patient worked his life in the [employer] business. He states he would have had some asbestos exposure he believes doing this. REVIEW OF SYSTEMS: Negative except for the above-mentioned complaints with the exception of the fact he has had weight loss. He had lost about 30 pounds, but he states he has gained about 8 pounds back. Otherwise, review of systems negative. PHYSICAL EXAMINATION: GENERAL: Mr. Hale is a 72-year-old male who was cooperative, alert and oriented. He looks somewhat short of breath at rest. He states he feels a little better than he did in the Emergency Room. VITAL SIGNS: Temperature is 36.4. HEENT: Pupils were reactive. Nares were clear. Mouth exam showed evidence of prior UPPP surgery. He appears to have mucous in the posterior pharynx. It looks like it is coming from above. NECK: Palpation of the neck reveals no lymph nodes. HEART: Cardiac rate was 87 per minute. The rhythm was regular. Blood pressure was 127/68. CHEST: Showed an increased AP diameter. Respiratory rate is 24 breaths per minute. LUNGS: The breath sounds are severely diminished and there are some rhonchi heard bilaterally. Saturation was 93% on 2 liters at the time of my exam. ABDOMEN: Soft. Good bowel sounds were heard. There was no tenderness to palpation, masses or organomegaly. EXTREMITIES: Showed no cyanosis, clubbing or edema. SKIN: Dry. IMAGING: The patient had a CAT scan of the chest. This showed no pulmonary emboli. There is an extensive right lower lobe airspace opacity, which has increased compared with 08/20/2017. This would most likely be progression of pneumonia. Secretions were suggested in the lower lung field. There was mild right hilar lymphadenopathy. Severe emphysema was noted. LABORATORY DATA: White count is 14.45. Hemoglobin 15.3. Platelets 155,000. D-dimer was elevated 1470. Urinalysis showed +2 protein, +1 glucose, +2 blood, and 5-10 rbc's. Electrolytes show sodium 139, potassium 3.7, chloride 106, bicarbonate 25. BUN is 18 with a creatinine 1.06. AST was 13, ALT 27, alkaline phosphatase 47. Troponin was negative. Albumin was 3 and total protein was 7. EKG showed sinus rhythm. P pulmonale was suggested. IMPRESSION: 1. Right lower lobe infiltrate suggestive for pneumonia. 2. Chronic obstructive pulmonary disease exacerbation. 3. Extensive emphysema. 4. Nicotine addiction. COMMENTS: The patient has progression of an infiltrate. At time of bronchoscopy last month, he grew pseudomonas and providencia. I am summarizing the treatment was not successful. I am ordering a new sputum. He has been ordered levofloxacin and Zosyn. I do believe he should have two antibiotic coverage for the pseudomonas as of now in light of the apparent failure. He is on methylprednisolone, which he needs in light of his bronchospasm. We are going to order a flutter valve for him. We are also going to order a vibration vest. I spoke with the patient about the need to totally abstain from smoking. His son and daughter were with him during this evaluation.
[2017-09-16] MEDS: TAMSULOSIN HCL 0.4 MG CAP PO SCH (20:56)
[2017-09-16] MEDS: ENOXAPARIN 40 MG/0.4 ML SYR SQ SCH (20:56)
[2017-09-16] MEDS: FLUTICASONE/SALMETEROL 250/50 (ADVAIR) 14 PUFF/1 INHALER INH SCH (20:56)
[2017-09-16 22:56] VITALS: BP 125/58; PULSE 90; TEMP 36.7; O2SAT 94
[2017-09-17] VITALS (8 sets, daily range): BP systolic 120–136; BP diastolic 65–70; PULSE 73–84; TEMP 35.8–36.6; O2SAT 93–98
[2017-09-17] MEDS: METHYLPREDNISOLONE IV 40 MG in SYRINGE 0 ML IV SCH ×2 (01:42→10:19)
[2017-09-17] MEDS: PIPERACILL/TAZOBAC IV 3.375 GM in DEXTROSE 5% 100ML 100 ML IV SCH ×3 (01:42→18:26)
[2017-09-17] MEDS: ACETAMINOPHEN 325 MG TAB PO PRN (04:24)
[2017-09-17] MEDS: ALBUT/IPRATROP 3MG/0.5MG NEB 3 ML VIAL INH SCH ×4 (07:22→18:59)
[2017-09-17] MEDS: AVODART-ORDER AWAITING ACTION SCH ×4 (07:30→21:16)
[2017-09-17] MEDS: ROSUVASTATIN CALCIUM 20 MG TAB PO SCH (08:02)
[2017-09-17] MEDS: VENLAFAXINE HCL XR 150 MG CAPXR PO SCH (08:02)
[2017-09-17] MEDS: FLUTICASONE/SALMETEROL 250/50 (ADVAIR) 14 PUFF/1 INHALER INH SCH ×2 (08:02→21:15)
[2017-09-17] MEDS: SERTRALINE HCL 50 MG TAB PO SCH (08:03)
[2017-09-17 08:18] LABS: BASO % 0.1 %; BASO ABS # 0.01 K/uL (0-0.2); HEMATOCRIT 38.6 % (42-52); HEMOGLOBIN 13.1 g/dL (14.0-18.0); IG# 0.03 K/uL (0.00-0.02); LYMPH % 2.1 %; LYMPH ABS # 0.25 K/uL (1.2-3.4); MEAN CELL VOLUME 92.6 fL (80-100); MEAN CORPUSCULAR HEMOGLOBIN 31.4 pg (25-34); MEAN CORPUSCULAR HGB CONC 33.9 g/dl (32-36); MEAN PLATELET VOLUME 10.7 fL (7.4-10.4); MONO % 6.6 %; NEUT ABS # 11.04 K/uL (1.4-6.5); PLATELET COUNT 150 K/uL (130-400); RED CELL DISTRIBUTION WIDTH CV 15.1 % (11.5-14.5); RED CELL DISTRIBUTION WIDTH SD 51.3 fL (36.4-46.3); WHITE BLOOD COUNT 12.13 K/uL (4.8-10.8)
--- NOTE | 2017-09-17 08:22 | Clinical Documentation Query ---
QUERY 1 OF [address] BAXTER, In your clinical opinion is this patient being managed for: ( + ) Suspected Pseudomonas pneumonia ( ) Not Agree ( ) Other explanation of clinical findings (No explanation is considered a No Response) ( ) Unable to determine ( ) Need to Discuss (Phone CDS or qliq) (No discussion is considered a No Response) The medical record reflects the following clinical findings, treatment, and risk factors. Clinical Indicators: Per pulmonary consult, pt with hx of pseudomonas and providencia pneumonia with bronch performed in July. Pt to continue on antibiotic coverage for pseudomonas. Treatment: repeat sputum cx, IV levaquin, IV zosyn, IV solumedrol, O2 support, pulmonary consult, nebs Risk Factors: age, hx of pseudomonal pneumonia QUERY 2 OF 2 In your clinical opinion is this patient being managed for: ( + ) Chronic hypoxic respiratory failure ( ) Not Agree ( ) Other explanation of clinical findings (No explanation is considered a No Response) ( ) Unable to determine ( ) Need to Discuss (Phone CDS or qliq) (No discussion is considered a No Response) The medical record reflects the following clinical findings, treatment, and risk factors. Clinical Indicators: 72 yo male presenting with COPD exacerbation and possible pneumonia. Noted to be O2 and steroid dependent at home. Treatment: chronic management includes O2 support, ventolin, advair, combivent and prednisone Risk Factors: severe COPD, severe emphysema, ongoing tobacco abuse Please clarify and document your clinical opinion in the progress notes and discharge summary. Terms such as "probable", "suspected", "likely", "questionable", "possible", or "still to be ruled out" are acceptable. IF IN AGREEMENT, YOU MUST DOCUMENT ABOVE DIAGNOSTIC STATEMENT IN DAILY PROGRESS NOTES AND DISCHARGE SUMMARY. This document is not part of the patient's record. Thank You, Tori Alvarenga RN [phone]
[2017-09-17 08:45] LABS: CALCIUM 9.2 mg/dl (8.5-10.1); CREATININE 1.01 mg/dl (0.60-1.40); POTASSIUM 3.6 mmol/L (3.5-5.1)
--- NOTE | 2017-09-17 11:32 | Progress Note ---
Internal Med Progress Note Date of Service: Sep 17, 2017. Provider Documentation: SUBJECTIVE: The patient was seen and examined in medical floor He was admitted yesterday with increasing shortness of breath with history of COPD and noted to have right lower lobe infiltration Has been feeling a lot better since admission Denies any shortness of breath or cough at rest OBJECTIVE: Vital Signs-as noted below Exam: General-no apparent distress Eyes-normal ENT-normal Neck-supple Lungs-decreased breath sounds both sites Very minimal wheezing Right basilar crackles Heart-regular Abdomen-benign Extremities-no edema Neuro-alert, awake and oriented 3 Generally weak Lab data as noted below. ASSESSMENT & PLAN: 72 y/o male with history of O2 dependent and steroid dependent COPD presents with progressive shortness of breath COPD exacerbation with mucus plugging -Increasing SOB,Cough for the last 1 week -Chronic Hypoxic Respiratory failure on Home O2 -Started on IV Solumedrol 40 mg Q8 hours and Nebs - Continue home O2 (on 2 liters at baseline) -Appreciate Pulmonary input and recommendation - Consult pulmonology (seen by Dr. Ireland with [facility]) -clinically much better todayu Right Lower Lobe Pneumonia,Possibly Pseudomonas infection -culture from bronchoscopy in July grew pseudomonas - Continue IV Zosyn and Levaquin started in the ED - pharmacy consulted for dosing -Sputum for C/S Anxiety/Depression - on Effexor outpatient, will continue Tobacco use disorder - pt remains uninterested in smoking cessation Constipation - ordered Miralax PRN Code status - full resuscitation DVT prophylaxis - SCDs, Lovenox Likely discharge in a day or two Vital Signs: Date Time Temp Pulse Resp B/P (MAP) Pulse Ox O2 Delivery O2 Flow Rate FiO2 09/17/17 08:00 Room Air 09/17/17 07:44 36.6 73 20 126/66 (86) 98 Room Air 09/17/17 07:25 78 20 94 Nasal Cannula 2.0 09/16/17 22:56 36.7 90 19 125/58 (80) 94 Nasal Cannula 2.0 09/16/17 20:00 Nasal Cannula 2.0 09/16/17 19:55 79 24 97 Nasal Cannula 2.0 09/16/17 15:54 36.4 87 24 127/68 96 Nasal Cannula 2.0 09/16/17 15:00 79 18 106/54 95 Nasal Cannula 2.0 09/16/17 14:10 87 20 141/67 93 Nasal Cannula 2.0 09/16/17 13:25 85 09/16/17 13:16 80 16 116/46 96 Nasal Cannula 2.0 09/16/17 12:00 76 18 138/67 96 Nasal Cannula 2.0 Lab Results: Results Past 24 Hours Test 09/16/17 13:26 09/17/17 07:49 Range/Units Urine Color DK YELLOW Urine Appearance CLEAR CLEAR Urine pH 5.0 4.5-7.5 Urine Specific [place] > 1.045 1.000-1.030 Urine Protein 2+ NEG Urine Glucose (UA) 1+ NEG Urine Ketones NEG NEG Urine Occult Blood 2+ NEG Urine Nitrite NEG NEG Urine Bilirubin NEG NEG Urine Urobilinogen NEG NEG Urine Leukocyte Esterase NEG NEG Urine WBC (Auto) 1-5 0-5 /hpf Urine RBC (Auto) 5-10 0-4 /hpf Urine Hyaline Casts (Auto) 1-5 0-5 /lpf Urine Epithelial Cells (Auto) >30 0-5 /lpf Urine Bacteria (Auto) NEG NEG Urine Renal Epithelial Cells 0-5 /lpf White Blood Count 12.13 4.8-10.8 K/uL Red Blood Count 4.17 4.7-6.1 M/uL Hemoglobin 13.1 14.0-18.0 g/dL Hematocrit 38.6 42-52 % Mean Corpuscular Volume 92.6 80-100 fL Mean Corpuscular Hemoglobin 31.4 25-34 pg Mean Corpuscular Hemoglobin Concent 33.9 32-36 g/dl Platelet Count 150 130-400 K/uL Mean Platelet Volume 10.7 7.4-10.4 fL Neutrophils (%) (Auto) 91.0 % Lymphocytes (%) (Auto) 2.1 % Monocytes (%) (Auto) 6.6 % Eosinophils (%) (Auto) 0.0 % Basophils (%) (Auto) 0.1 % Neutrophils # (Auto) 11.04 1.4-6.5 K/uL Lymphocytes # (Auto) 0.25 1.2-3.4 K/uL Monocytes # (Auto) 0.80 0.11-0.59 K/uL Eosinophils # (Auto) 0.00 0-0.5 K/uL Basophils # (Auto) 0.01 0-0.2 K/uL RDW Standard Deviation 51.3 36.4-46.3 fL RDW Coefficient of Variation 15.1 11.5-14.5 % Immature Granulocyte % (Auto) 0.2 % Immature Granulocyte # (Auto) 0.03 0.00-0.02 K/uL Sodium Level 138 136-145 mmol/L Potassium Level 3.6 3.5-5.1 mmol/L Chloride Level 105 98-107 mmol/L Carbon Dioxide Level 26 21-32 mmol/L Anion Gap 8.0 3-11 mmol/L Blood Urea Nitrogen 24 7-18 mg/dl Creatinine 1.01 0.60-1.40 mg/dl Est Creatinine Clear Calc Drug Dose 61.1 ml/min Estimated GFR () 85.1 Estimated GFR (Non- 73.4 BUN/Creatinine Ratio 24.1 10-20 Random Glucose 137 70-99 mg/dl Calcium Level 9.2 8.5-10.1 mg/dl
--- NOTE | 2017-09-17 14:21 | PULMONARY PROGRESS NOTE ---
DATE: 09/17/2017 TIME: 2:05 p.m. SUBJECTIVE: The patient is feeling a little bit better. He is not as tight and not short of breath. His daughter and son were with him during this evaluation. The patient does not recall expectorating a sample into a cup. I could not verify if that has been done or not. OBJECTIVE: GENERAL: The patient looked more comfortable than yesterday. VITAL SIGNS: Temperature is 36.6. ENT: Unremarkable. HEART: Heart rate was 78 per minute. Rhythm is regular. Blood pressure is 126/66. CHEST: Respiratory rate is 20. Breath sounds are diminished. There are mild rales heard at the right base. No wheezing is heard today. Saturation is 93% on 2 liters at the time of this evaluation. EXTREMITIES: Showed no cyanosis, clubbing or edema. LABORATORY DATA: White count today is 12.13. Hemoglobin 13.1. Platelets 150,000. Chemistry today shows BUN 24, creatinine 1.01. Electrolytes were normal. Blood sugar was 137. It is unknown if that was fasting or not. IMPRESSIONS: 1. Right lower lobe infiltrate. 2. Chronic obstructive pulmonary disease exacerbation. 3. Emphysema. 4. Nicotine addiction. COMMENTS AND RECOMMENDATIONS: We will continue with the patient's current treatment. I believe we can cut the methylprednisolone dosage back. We will need to verify if indeed he sent a sputum sample or not. We will continue to follow.
[2017-09-17] MEDS: LEVOFLOXACIN / D5W 750 MG in PREMIXED IN D5W 150 ML IV SCH (14:50)
[2017-09-17] MEDS: METHYLPREDNISOLONE IV 20 MG in SYRINGE 0 ML IV SCH (18:27)
[2017-09-17] MEDS: ENOXAPARIN 40 MG/0.4 ML SYR SQ SCH (21:15)
[2017-09-17] MEDS: TAMSULOSIN HCL 0.4 MG CAP PO SCH (21:16)
[2017-09-18] VITALS (7 sets, daily range): BP systolic 145–149; BP diastolic 69–75; PULSE 73–86; TEMP 36.5–36.8; O2SAT 91–96
[2017-09-18] MEDS: METHYLPREDNISOLONE IV 20 MG in SYRINGE 0 ML IV SCH ×3 (01:58→17:56)
[2017-09-18] MEDS: PIPERACILL/TAZOBAC IV 3.375 GM in DEXTROSE 5% 100ML 100 ML IV SCH ×3 (02:00→17:56)
[2017-09-18] MEDS: FLUTICASONE/SALMETEROL 250/50 (ADVAIR) 14 PUFF/1 INHALER INH SCH ×2 (07:31→21:10)
[2017-09-18] MEDS: VENLAFAXINE HCL XR 150 MG CAPXR PO SCH (07:32)
[2017-09-18] MEDS: SERTRALINE HCL 50 MG TAB PO SCH (07:32)
[2017-09-18] MEDS: ROSUVASTATIN CALCIUM 20 MG TAB PO SCH (07:32)
[2017-09-18] MEDS: ALBUT/IPRATROP 3MG/0.5MG NEB 3 ML VIAL INH SCH ×3 (07:36→18:51)
[2017-09-18] MEDS: AVODART-ORDER AWAITING ACTION SCH ×3 (09:40→23:42)
--- NOTE | 2017-09-18 14:07 | Progress Note ---
Internal Med Progress Note Date of Service: Sep 18, 2017. Provider Documentation: SUBJECTIVE: The patient was seen and examined in medical floor He was admitted yesterday with increasing shortness of breath with history of COPD and noted to have right lower lobe infiltration Has been feeling a lot better since admission Denies any shortness of breath or cough at rest 09/18: Feels a lot better today Minimal shortness of breath at rest Wants to go home and feels that he is at his baseline OBJECTIVE: Vital Signs-as noted below Exam: General-minimal shortness of breath at rest Eyes-normal ENT-normal Neck-supple Lungs-decreased breath sounds both sites Very minimal wheezing Right basilar crackles Heart-regular Abdomen-benign Extremities-no edema Neuro-alert, awake and oriented 3 Generally weak Lab data as noted below. ASSESSMENT & PLAN: 72 y/o male with history of O2 dependent and steroid dependent COPD presents with progressive shortness of breath COPD exacerbation with mucus plugging -Increasing SOB,Cough for the last 1 week -Chronic Hypoxic Respiratory failure on Home O2 -Started on IV Solumedrol 40 mg Q8 hours and Nebs - Continue home O2 (on 2 liters at baseline) -Appreciate Pulmonary input and recommendation - Consult pulmonology (seen by Dr. Ireland with [facility]) -clinically much better today -We will decrease intravenous Solu-Medrol to twice daily -Continue current antibiotic -Likely discharge tomorrow Right Lower Lobe Pneumonia,Possibly Pseudomonas infection -culture from bronchoscopy in July grew pseudomonas - Continue IV Zosyn and Levaquin started in the ED - pharmacy consulted for dosing -Sputum for C/S-nothing impressive Anxiety/Depression - on Effexor outpatient, will continue No acute symptoms Tobacco use disorder - pt remains uninterested in smoking cessation Strongly advised to quit smoking Constipation - ordered Miralax PRN Code status - full resuscitation DVT prophylaxis - SCDs, Lovenox Likely discharge tomorrow Vital Signs: Date Time Temp Pulse Resp B/P (MAP) Pulse Ox O2 Delivery O2 Flow Rate FiO2 09/18/17 09:05 Nasal Cannula 2.0 09/18/17 07:36 73 16 95 Nasal Cannula 3.0 09/18/17 07:03 36.5 86 22 145/69 (94) 94 Nasal Cannula 2.0 09/18/17 02:02 36.6 09/17/17 22:57 35.8 75 18 125/70 (88) 98 Nasal Cannula 2.0 09/17/17 21:00 Nasal Cannula 2.0 09/17/17 20:34 36.6 80 18 136/69 (91) 95 Nasal Cannula 2.0 09/17/17 19:01 84 16 97 Nasal Cannula 2.0 09/17/17 15:48 36.4 82 20 120/65 (83) 98 Room Air 09/17/17 15:12 84 20 93 Nasal Cannula 2.0 Lab Results: Microbiology Results 09/17/17 Gram Stain - Final, Resulted 09/17/17 Sputum Culture, Resulted Pending
[2017-09-18] MEDS: LEVOFLOXACIN / D5W 750 MG in PREMIXED IN D5W 150 ML IV SCH (14:18)
--- NOTE | 2017-09-18 15:16 | PULMONARY PROGRESS NOTE ---
DATE: 09/18/2017 TIME: 2:35 p.m. SUBJECTIVE: The patient claims he feels better. He is extremely anxious, however, to go home. I think he would tell us anything. He has not been exerting himself to any substantial degree. His son and a friend were both present. His friend indicated that the patient had been quite short of breath just going to the bathroom and back. Sitting in bed, he feels comfortable. He is not bringing up any phlegm. OBJECTIVE: GENERAL: The patient looks fairly comfortable at rest. VITAL SIGNS: Temperature is 36.5. He has not had any fever. Heart rate is 73 per minute. Rhythm is regular. Blood pressure 145/69. CHEST: Auscultation of the lung barber revealed moderate rhonchi. Breath sounds were decreased. Saturation is 95% on 3 liters. Respiratory rate is 18. EXTREMITIES: Showed no cyanosis, clubbing or edema. LABORATORY DATA: No labs were done today. IMPRESSIONS: 1. Right lower lobe pneumonia. 2. Chronic obstructive pulmonary disease exacerbation. 3. Emphysema - severe. 4. Nicotine addiction. COMMENTS AND RECOMMENDATIONS: The patient may be slightly improved. As noted, he is extremely anxious to go home. I have encouraged his family to walk him in the hallway to see how he really does. He does need oxygen to ambulate with. His sputum culture shows many WBCs, but very few bacteria. I am not certain it was a good specimen, however. I suspect it may not have been and the patient agrees that it likely was not. Case was discussed with Dr. Sales. I would try to keep the patient here at least until tomorrow. Will order a chest x-ray for tomorrow morning to make sure the infiltrate is not worsening. We can then assess how the patient is making out. Will change his steroids to oral. He apparently will need nebulizer solutions for when he goes home. The only prescription they found was for budesonide. He likely does not need budesonide because he does take Advair 500/50 at home.
[2017-09-18] MEDS: ACETAMINOPHEN 325 MG TAB PO PRN (15:45)
[2017-09-18] MEDS ORDERED: NURSING VERBAL MED ORDER PRN (16:00)
[2017-09-18] MEDS: ONDANSETRON INJ 2 MG/ML 2 ML VIAL IV PRN (17:55)
[2017-09-18] MEDS: ENOXAPARIN 40 MG/0.4 ML SYR SQ SCH (21:00)
[2017-09-18] MEDS: TAMSULOSIN HCL 0.4 MG CAP PO SCH (21:11)
[2017-09-19 00:12] VITALS: BP 147/77; PULSE 83; TEMP 36.7; O2SAT 94
[2017-09-19] MEDS: PIPERACILL/TAZOBAC IV 3.375 GM in DEXTROSE 5% 100ML 100 ML IV SCH (02:24)
[2017-09-19 06:46] LABS: HEMOGLOBIN 13.1 g/dL (14.0-18.0); MEAN CELL VOLUME 92.6 fL (80-100); MEAN CORPUSCULAR HEMOGLOBIN 31.1 pg (25-34); MEAN CORPUSCULAR HGB CONC 33.6 g/dl (32-36); MEAN PLATELET VOLUME 9.6 fL (7.4-10.4); PLATELET COUNT 169 K/uL (130-400); RED CELL DISTRIBUTION WIDTH CV 14.9 % (11.5-14.5); WHITE BLOOD COUNT 10.05 K/uL (4.8-10.8)
[2017-09-19] MEDS: ALBUT/IPRATROP 3MG/0.5MG NEB 3 ML VIAL INH SCH ×2 (07:04→11:04)
[2017-09-19 07:07] VITALS: PULSE 67; O2SAT 96
[2017-09-19 07:24] LABS: CALCIUM 8.6 mg/dl (8.5-10.1); CREATININE 1.08 mg/dl (0.60-1.40); POTASSIUM 3.8 mmol/L (3.5-5.1)
[2017-09-19 07:33] VITALS: BP 162/84; PULSE 65; TEMP 36.7; O2SAT 100
[2017-09-19] MEDS: VENLAFAXINE HCL XR 150 MG CAPXR PO SCH (07:55)
[2017-09-19] MEDS: FLUTICASONE/SALMETEROL 250/50 (ADVAIR) 14 PUFF/1 INHALER INH SCH (07:55)
[2017-09-19] MEDS: ROSUVASTATIN CALCIUM 20 MG TAB PO SCH (07:55)
[2017-09-19] MEDS: SERTRALINE HCL 50 MG TAB PO SCH (07:56)
[2017-09-19] MEDS: ONDANSETRON INJ 2 MG/ML 2 ML VIAL IV PRN (07:56)
[2017-09-19] MEDS: ACETAMINOPHEN 325 MG TAB PO PRN (07:56)
[2017-09-19] MEDS: AVODART-ORDER AWAITING ACTION SCH (08:24)
--- NOTE | 2017-09-19 09:04 | DIAGNOSTIC IMAGING REPORT ---
CHEST 2 VIEWS ROUTINE CLINICAL HISTORY: Follow-up right lower lobe pneumonia. COMPARISON STUDY: Chest radiograph and chest CT September 16, 2017. FINDINGS: Emphysema is noted. There is no pneumothorax. There may be a trace right pleural effusion. Right lower lobe consolidation persists although has improved since exam of September 16, 2017. Left lung is clear. There is no evidence for pulmonary edema. Cardiomediastinal silhouette is normal. IMPRESSION: 1. Persistent, but improved, right lower lobe consolidation which favors pneumonia. Continued radiographic follow-up to ensure complete resolution is recommended. 2. Suspected trace right pleural effusion. 3. Emphysema. Electronically signed by: King Edwards M.D. 09/19/2017 7:45 AM Dictated Date/Time: 09/19/2017 7:43 AM
[2017-09-19] MEDS ORDERED: AMOXICILLIN/CLAVULANATE TAB 875 MG TAB PO ONE (09:55)
[2017-09-19] MEDS ORDERED: LEVOFLOXACIN 750 MG TAB PO SCH (11:00)
[2017-09-19 11:04] VITALS: PULSE 72; O2SAT 94
[2017-09-19 11:09] VITALS: BP 162/84; PULSE 72; TEMP 36.7; O2SAT 94
--- NOTE | 2017-09-19 12:39 | Progress Note ---
Internal Med Progress Note Date of Service: Sep 19, 2017. Provider Documentation: SUBJECTIVE: The patient was seen and examined in medical floor He was admitted yesterday with increasing shortness of breath with history of COPD and noted to have right lower lobe infiltration Has been feeling a lot better since admission Denies any shortness of breath or cough at rest 09/18: Feels a lot better today Minimal shortness of breath at rest Wants to go home and feels that he is at his baseline 09/19 Denies any complaints Ambulating without any significant issue Wants to go home OBJECTIVE: Vital Signs-as noted below Exam: General-minimal shortness of breath at rest Eyes-normal ENT-normal Neck-supple Lungs-decreased breath sounds both sites Very minimal wheezing Right basilar crackles Heart-regular Abdomen-benign Extremities-no edema Neuro-alert, awake and oriented 3 Generally weak Lab data as noted below. ASSESSMENT & PLAN: 72 y/o male with history of O2 dependent and steroid dependent COPD presents with progressive shortness of breath COPD exacerbation with mucus plugging -Increasing SOB,Cough for the last 1 week -Chronic Hypoxic Respiratory failure on Home O2 -Started on IV Solumedrol 40 mg Q8 hours and Nebs - Continue home O2 (on 2 liters at baseline) -Appreciate Pulmonary input and recommendation - Consult pulmonology (seen by Dr. Ireland with [facility]) -clinically much better today -We will decrease intravenous Solu-Medrol to twice daily -Clinically a lot better today -CXR -improvement of the Pneumonia -Discussed with the Pulmonary -will discharge on Levaquin and Augmentin for 10 days Right Lower Lobe Pneumonia,Possibly Pseudomonas infection -culture from bronchoscopy in July grew pseudomonas - Continue IV Zosyn and Levaquin started in the ED - pharmacy consulted for dosing -Sputum for C/S-nothing impressive -CXR-improved Anxiety/Depression - on Effexor outpatient, will continue No acute symptoms Tobacco use disorder - pt remains uninterested in smoking cessation Strongly advised to quit smoking Constipation - ordered Miralax PRN Code status - full resuscitation DVT prophylaxis - SCDs, Lovenox Discharge today PCP in [address] [place] Vital Signs: Date Time Temp Pulse Resp B/P (MAP) Pulse Ox O2 Delivery O2 Flow Rate FiO2 09/19/17 11:09 36.7 72 16 94 Nasal Cannula 09/19/17 11:04 72 16 94 Nasal Cannula 3.0 09/19/17 08:21 Nasal Cannula 2.0 09/19/17 07:33 36.7 65 18 162/84 (110) 100 09/19/17 07:07 67 16 96 Nasal Cannula 2.0 09/19/17 00:12 36.7 83 16 147/77 (100) 94 Nasal Cannula 2.0 09/19/17 00:00 Nasal Cannula 2.0 09/18/17 18:52 79 16 91 Nasal Cannula 2.0 09/18/17 16:45 Nasal Cannula 2.0 09/18/17 15:28 36.8 80 22 149/75 (99) 95 Room Air 09/18/17 15:18 79 16 91 Nasal Cannula 2.0 Lab Results: Results Past 24 Hours Test 09/19/17 06:35 Range/Units White Blood Count 10.05 4.8-10.8 K/uL Red Blood Count 4.21 4.7-6.1 M/uL Hemoglobin 13.1 14.0-18.0 g/dL Hematocrit 39.0 42-52 % Mean Corpuscular Volume 92.6 80-100 fL Mean Corpuscular Hemoglobin 31.1 25-34 pg Mean Corpuscular Hemoglobin Concent 33.6 32-36 g/dl RDW Standard Deviation 51.0 36.4-46.3 fL RDW Coefficient of Variation 14.9 11.5-14.5 % Platelet Count 169 130-400 K/uL Mean Platelet Volume 9.6 7.4-10.4 fL Sodium Level 140 136-145 mmol/L Potassium Level 3.8 3.5-5.1 mmol/L Chloride Level 105 98-107 mmol/L Carbon Dioxide Level 28 21-32 mmol/L Anion Gap 7.0 3-11 mmol/L Blood Urea Nitrogen 23 7-18 mg/dl Creatinine 1.08 0.60-1.40 mg/dl Est Creatinine Clear Calc Drug Dose 57.1 ml/min Estimated GFR () 78.5 Estimated GFR (Non- 67.7 BUN/Creatinine Ratio 20.9 10-20 Random Glucose 110 70-99 mg/dl Calcium Level 8.6 8.5-10.1 mg/dl Magnesium Level 2.6 1.8-2.4 mg/dl
--- NOTE | 2017-09-19 13:44 | PULMONARY PROGRESS NOTE ---
DATE: 09/19/2017 TIME: 1:20 p.m. SUBJECTIVE: The patient is generally feeling better. He states he is less short of breath. His 2 sons were with him during this evaluation. The patient did walk yesterday afternoon and got short of breath. He has not walked in the hallway since then. He is not coughing much. He is not bringing up phlegm. OBJECTIVE: GENERAL: The patient appears comfortable at rest. VITAL SIGNS: Temperature is 36.7. Heart rate is 72 per minute. Rhythm is regular. Blood pressure 162/84. LUNGS: Lung barber were clear. No wheezes were heard. Breath sounds were decreased. Saturation was 94% on 3 liters. EXTREMITIES: Showed no cyanosis, clubbing or edema. IMAGING DATA: Chest x-ray today shows improvement in the previously seen right lower lobe infiltrate. I did review this x-ray with Dr. Sales. LABORATORY DATA: White count is 10.05, admission was 14.45. Hemoglobin is 13.1. Platelets 169,000. Electrolytes are normal. BUN is 23 with a creatinine 1.08. IMPRESSIONS: 1. Right lower lobe pneumonia - presumably pseudomonas. 2. Chronic obstructive pulmonary disease exacerbation. 3. Emphysema. 4. Nicotine addiction. COMMENTS AND RECOMMENDATIONS: The patient is doing well. He sounds much better on exam. I have no objection to discharge. I discussed with Dr. Sales about the antibiotics as an outpatient. I believe he should have a prescription for neb treatments with albuterol. He already has a nebulizer. The prednisone can be gradually tapered. He is set up for a followup with Dr. Ireland. We will put in for him to get a chest x-ray just prior to that appointment.
[2017-09-19] MEDS ORDERED: AMOX1TAB43 PO (14:02)
[2017-09-19] MEDS ORDERED: PRED10TA PO (14:02)
[2017-09-19] MEDS ORDERED: LCTX PO (14:02)
[2017-09-19] MEDS ORDERED: ALBINS INH (14:02)
[2017-09-19] MEDS ORDERED: LVQ750 PO (14:02)
--- NOTE | 2017-09-19 14:06 | Discharge Instructions ---
Discharge Instructions Date of Service Sep 19, 2017. Admission Reason for Admission: Copd With Exacerbation Discharge Discharge Diagnosis / Problem: RLL Pneumonia,COPD Exacerbation,On Home Oxygen Discharge Goals Goal(s): Prevent Disease Progression Activity Recommendations Activity Limitations: resume your previous activity . Instructions / Follow-Up Instructions / Follow-Up Pulmonary wit German Summers on 09/27/17 at 10:00AM . Dr Tuttle on 09/23/17 at 2: 05 PM Current Hospital Diet Patient's current hospital diet: AHA Diet (Heart Healthy) Discharge Diet Recommended Diet: AHA Diet (Heart Healthy) Pending Studies Studies pending at discharge: no Medical Emergencies . Who to Call and When: Medical Emergencies: If at any time you feel your situation is an emergency, please call 911 immediately. . Non-Emergent Contact Non-Emergency issues call your: Primary Care Provider . Past History Medical & Surgical History: (1) COPD with exacerbation (2) Pneumonia (3) Depression (4) HTN (hypertension) (5) Pulmonary nodule (6) Right carotid bruit (7) detention systemic steroid user (8) H/O knee surgery (9) H/O shoulder surgery . "Provider Documentation" section prepared by Harry Sales. .
[2017-09-19] MEDS ORDERED: AMOXICILLIN/CLAVULANATE TAB 875 MG TAB PO SCH (17:00)
--- NOTE | 2017-09-20 08:08 | Discharge Summary ---
Discharge Summary Date of Service Sep 20, 2017. Discharge Summary Admission Date: Sep 16, 2017 at 14:59 Discharge Date: Sep 19, 2017 Discharge Disposition: Home with services Principal Diagnosis: RLL Pneumonia,COPD Exacerbation,On Home Oxygen Secondary Diagnoses/Problems: Please see H&P and Hospital Progress note Consultations: Pulmonary Medication Reconciliation New Medications: Lactobacillus Acidophilus (Lactinex) Tab 2 TAB PO BID, #40 TAB Prednisone Tab (Prednisone) 10 Mg Tab 10 MG PO UD for 15 Days, #45 TAB 4 po daily for 5 days,3 po daily for 5 days and then 2 po daily for 5 days.Then continue with 10 mg daily Albuterol Sulf (Albuterol Sulfate) 2.5 Mg/3 Ml Nebu 2.5 MG INH Q4 PRN for Shortness of Breath for 30 Days, #60 DOSE Amoxicillin & Pot Clavulanate (Amoxicillin/Clavulanate P) 1 Tab Tab 875 MG PO BIDM for 10 Days, #20 TAB Levofloxacin (Levofloxacin) 750 Mg Tab 750 MG PO DAILY@11 for 10 Days, #10 TAB Continued Medications: Dutasteride (Avodart) 0.5 Mg Cap 0.5 MG PO DAILY Fluticasone Prop/Salmeterol (Advair Diskus 250/50 60 Dose) 1 Ea Aerp 1 PUFF INH BID Ipratropium-Albuterol (Combivent Respimat) 1 Aer Aer 1 PUFFS INH QID Oxycodone/Acetaminophen 5MG/325MG (Percocet 5MG/325MG) Tab 1 TABLET PO Q12 PRN for Pain PAIN Prednisone Tab (Prednisone) 10 Mg Tab 10 MG PO DAILY Continue after the tapering dose is finished Rosuvastatin Calcium (Crestor) 20 Mg Tab 20 MG PO DAILY Sertraline (Zoloft) 25 Mg Tab 25 MG PO DAILY Sildenafil Citrate (Viagra) 50 Mg Tab 50 MG PO UD PRN for PRN Tamsulosin Hcl (Flomax) 0.4 Mg Cap 0.4 MG PO HS Venlafaxine Hcl (Effexor Extended Rel) 150 Mg Cap 150 MG PO DAILY Discontinued Medications: Albuterol Hfa (Ventolin Hfa) 200 Puffs/53701 Mcg Aers 2 PUFFS INH Q4 PRN for SOB/Wheezing Admission Information HPI (per Admitting provider): 72 y/o male presents to the ED today with progressive shortness of breath for the past week. He has a history of COPD that has progressed, particularly over the past year and a half. He reports having home O2 for several months but has only worn consistently since recent hospitalization after bronchoscopy in July 2017. His baseline requirement is 2 liters. He is also on prednisone 10 mg daily and has been on this "for a long time." He has been smoking 1PPD since age 13 but reports current breathing issues have resulted in smoking only a few cigarettes per day, although still no interest in quitting long-term. His bronchoscopy in July 2017 was to be outpatient but patient desaturated post- procedure and was admitted. Culture grew pseudomonas for which he was treated with ciprofloxacin. He reports that he was doing better until a week ago. Since then he notes progressive dyspnea, particularly with exertion. Previously , he could do a flight of steps easily but he is now winded with 10 feet of walking. He has a chronic cough that is productive in the AMs of small amount of light brown sputum. No hemoptysis, fevers, chills, or night sweats. He has been fatigued. He props up with three pillows to sleep at night (baseline was two). Notes a decreased appetite but no N/V/D. +constipation but chronic issue. Last BM was four days ago. Takes Senna at home when needed, which works well. He has been using Combivent for rescue up to 6 times per day ( baseline 3-4x/day). He has not tried his nebulizer. Notes right > left lower back pain and some abdominal pain related to cough. Physical Exam (per Admitting): General Appearance: no apparent distress, + thin Head: normocephalic, atraumatic Eyes: normal inspection, PERRL, sclerae normal ENT: pharynx normal Neck: supple, no adenopathy Respiratory/Chest: no respiratory distress, no accessory muscle use, + decreased breath sounds (at right base), + wheezing, + pertinent finding ( coarse BS throughout) Cardiovascular: regular rate, rhythm, no gallop, normal peripheral pulses Abdomen/GI: normal bowel sounds, non tender, soft, no pulsatile mass Back: normal inspection, no CVA tenderness, no muscle spasm Extremities/Musculoskelatal: no calf tenderness, no pedal edema Neurologic/Psych: alert, normal mood/affect, oriented x 3 Skin: warm/dry, no rash, + pertinent finding (few small areas of ecchymosis on UE and LE) Lymphatic: no adenopathy Hospital Course 72 y/o male with history of O2 dependent and steroid dependent COPD presents with progressive shortness of breath COPD exacerbation with mucus plugging -Increasing SOB,Cough for the last 1 week -Chronic Hypoxic Respiratory failure on Home O2 -Started on IV Solumedrol 40 mg Q8 hours and Nebs - Continue home O2 (on 2 liters at baseline) -Appreciate Pulmonary input and recommendation - Consult pulmonology (seen by Dr. Ireland with [facility]) -clinically much better today -We will decrease intravenous Solu-Medrol to twice daily -Clinically a lot better today -CXR -improvement of the Pneumonia -Discussed with the Pulmonary -will discharge on Levaquin and Augmentin for 10 days Right Lower Lobe Pneumonia,Possibly Pseudomonas infection -culture from bronchoscopy in July grew pseudomonas - Continue IV Zosyn and Levaquin started in the ED - pharmacy consulted for dosing -Sputum for C/S-nothing impressive -CXR-improved Anxiety/Depression - on Effexor outpatient, will continue No acute symptoms Tobacco use disorder - pt remains uninterested in smoking cessation Strongly advised to quit smoking Constipation - ordered Miralax PRN Code status - full resuscitation DVT prophylaxis - SCDs, Lovenox Discharge today PCP in [address] Ireland Total time spent on discharge = 35 minutes This includes examination of the patient, discharge planning, medication reconciliation, and communication with other providers. Discharge Instructions Date of Service Sep 19, 2017. Admission Reason for Admission: Copd With Exacerbation Discharge Discharge Diagnosis / Problem: RLL Pneumonia,COPD Exacerbation,On Home Oxygen Discharge Goals Goal(s): Prevent Disease Progression Activity Recommendations Activity Limitations: resume your previous activity . Instructions / Follow-Up Instructions / Follow-Up Pulmonary wit German Summers on 09/27/17 at 10:00AM . Dr Tuttle on 09/23/17 at 2: 05 PM Current Hospital Diet Patient's current hospital diet: AHA Diet (Heart Healthy) Discharge Diet Recommended Diet: AHA Diet (Heart Healthy) Pending Studies Studies pending at discharge: no Medical Emergencies . Who to Call and When: Medical Emergencies: If at any time you feel your situation is an emergency, please call 911 immediately. . Non-Emergent Contact Non-Emergency issues call your: Primary Care Provider . Past History Medical & Surgical History: (1) COPD with exacerbation (2) Pneumonia (3) Depression (4) HTN (hypertension) (5) Pulmonary nodule (6) Right carotid bruit (7) [facility] systemic steroid user (8) H/O knee surgery (9) H/O shoulder surgery . "Provider Documentation" section prepared by Harry Sales. . <Electronically signed by Harry Sales M.D.> Signed: 09/19/17 1997 Additional Copies To Sin Rivas MD
== END 2017-09-19 14:36 | disposition home health service (06) | DRG 178 ==
LOC: C.EDB 09:49 → C.MS4W 14:59 → ENRESERV 15:19 → EDBEDREQ 15:24
PROVIDERS: ADMIT Internal Medicine; ATTEND Internal Medicine
DX: J15.1 Pneumonia due to Pseudomonas (principal); J44.0 Chronic obstructive pulmonary disease with (acute) lower respiratory infection; J44.1 Chronic obstructive pulmonary disease with (acute) exacerbation; J96.11 Chronic respiratory failure with hypoxia; T17.990A Other foreign object in respiratory tract, part unspecified in causing asphyxiation, initial encounter; K59.00 Constipation, unspecified; I10 Essential (primary) hypertension; F41.9 Anxiety disorder, unspecified; F32.9 Major depressive disorder, single episode, unspecified; F17.210 Nicotine dependence, cigarettes, uncomplicated; Z51.81 Encounter for therapeutic drug level monitoring; Z79.899 Other long term (current) drug therapy; Z79.52 Long term (current) use of systemic steroids; Z99.81 Dependence on supplemental oxygen; Z85.51 Personal history of malignant neoplasm of bladder; Z88.2 Allergy status to sulfonamides; Z82.49 Family history of ischemic heart disease and other diseases of the circulatory system; X58.XXXA Exposure to other specified factors, initial encounter

== ENCOUNTER → 2017-09-27 | Outpatient (CLI) | payer OTHER ==
[~2017-09-27] MED LIST changes: +ADVIN25/60 INH; -ADVIN50/60 INH; +ALBINS INH; +AMOX1TAB43 PO; +AVD5 PO; -DUTA0.5C PO; +LCTX PO; +LVQ750 PO; +OXYC-57 PO; +PRED10TA PO; +ROSU20TA PO; -ROSU40TA PO; +SERT25TA PO; +TAMS0.4C38 PO; +VGR50 PO; -VNTHFA/IN INH
--- NOTE | 2017-09-27 10:05 | DIAGNOSTIC IMAGING REPORT ---
CHEST 2 VIEWS ROUTINE HISTORY: 72 years-old Male J15.1 Pseudomonas pneumoniaF/U ON [id number] acute shortness of breath with pneumonia COMPARISON: Chest radiograph 09/19/2017, 09/16/2017, 09/11/2016 and 08/01/2017 CTA chest 09/16/2017 TECHNIQUE: PA and lateral views of the chest FINDINGS: Cardiomediastinal and hilar silhouettes are within normal limits. Emphysema with areas of chronic interstitial coarsening, notably about the left perihilar distribution. Chronic blunting of the costophrenic angles without large pleural effusion or pneumothorax. Improved aeration about the right lung base with minimal persistent airspace opacities noted about the right lower lobe. Bones appear grossly intact. IMPRESSION: 1. Improved aeration of the right lower lobe with mild persistent subsegmental airspace opacities noted. Findings may reflect persistent pneumonia or residual postinflammatory scarring with atelectasis. 2. Emphysema. The above report was generated using voice recognition software. It may contain grammatical, syntax or spelling errors. Electronically signed by: Anibal Pinto M.D. 09/27/2017 10:04 AM Dictated Date/Time: 09/27/2017 9:59 AM
== END | disposition home or self-care (01) ==
LOC: C.RAD1850 09:48
PROVIDERS: ATTEND Internal Medicine Pulmonary Disease
DX: J15.1 Pneumonia due to Pseudomonas (principal); J43.9 Emphysema, unspecified